=== PATIENT | female | born 1950 | race Caucasian/White ===

== ENCOUNTER 2018-02-22 00:15 | Emergency (ER) | payer MEDICAID ==
[~2018-02-22] VITALS: Ht 154.9 cm; Wt 136.1 kg
[2018-02-22 00:27] VITALS: Ht 154.9 cm; Wt 136.1 kg
[2018-02-22 01:57] LABS: BASOPHIL % 0.4 % (0-2); PLATELET COUNT 293 x10^3mcL (130-400); RED CELL DISTRIBUTION WIDTH 13.8 % (11.5-14.5)
[2018-02-22 02:07] LABS: CALCIUM 8.6 mg/dL (8.5-10.1); CARBON DIOXIDE 29.3 mmol/L (21-32); POTASSIUM SERUM 3.5 mmol/L (3.5-5.1)
[2018-02-22 02:12] LABS: ALBUMIN 3.4 g/dL (3.4-5.0); BILIRUBIN TOTAL 0.17 mg/dL (0.20-1.00); TOTAL PROTEIN, SERUM 7.8 g/dL (6.4-8.2)
[2018-02-22 03:26] LABS: ERYTHROCYTE SED RATE 36 mm/hr (0-30)
[2018-02-22 06:00] VITALS: BP 157/73
== END 2018-02-22 06:00 | disposition home or self-care (01) ==
LOC: ED 00:15
PROVIDERS: Emergency Medicine
DX: R51 Headache (principal); M54.2 Cervicalgia; J34.89 Other specified disorders of nose and nasal sinuses
CPT/HCPCS: J1885; J2270; J2765